=== PATIENT | female | born 1940 | race Caucasian/White ===

== ENCOUNTER 2017-07-08 03:05 | Emergency (ER) | payer MEDICARE ==
[2017-07-08 03:46] LABS: BILIRUBIN,URINE NEGATIVE (NEG); CLARITY,URINE CLEAR; COLOR,URINE YELLOW; GLUCOSE,URINE NEGATIVE (NEG); NITRITE,URINE NEGATIVE (NEG); PROTEIN,URINE NEGATIVE (NEG-TRACE); UROBILINOGEN,URINE 0.2 mg/dL (0.2 mg/dL)
[2017-07-08 03:55] LABS: BACTERIA,URINE 0 /HPF (0-FEW); RBC,URINE 0 /HPF (0-2); SQUAMOUS EPITHELIAL CELL,UR FEW /LPF; WBC,URINE OCC /HPF (0-4)
[2017-07-08 04:16] LABS: ADD MAN DIFF? NO
[2017-07-08 04:19] LABS: BASO # 0.1 x10^3/uL (0.0-0.2); BASO % 1 % (0-3); EOS # 0.2 x10^3/uL (0.0-0.7); EOS % 3 % (0-3); HEMOGLOBIN 10.3 g/dL (12.0-15.5); LYMPH # 1.7 x10^3/uL (1.0-4.8); LYMPH % 27 % (24-48); MEAN CORPUSCULAR HEMOGLOBIN 28 pg (25-35); MEAN CORPUSCULAR HGB CONC 33 g/dL (31-37); MEAN CORPUSCULAR VOLUME 83 fL (79-100); MONO # 0.5 x10^3/uL (0.0-1.1); MONO % 8 % (0-9); NEUT # 3.9 x10^3uL (1.8-7.7); NEUT % 61 % (31-73); PLATELET COUNT 241 x10^3/uL (140-400); RED BLOOD COUNT 3.74 x10^6/uL (3.50-5.40); RED CELL DISTRIBUTION WIDTH 15.2 % (11.5-14.5); WHITE BLOOD COUNT 6.3 x10^3/uL (4.0-11.0)
[2017-07-08 04:28] LABS: ANION GAP 10 (6-14); BLOOD UREA NITROGEN 27 mg/dL (7-20); CALCIUM 8.8 mg/dL (8.5-10.1); CARBON DIOXIDE 25 mmol/L (21-32); CHLORIDE 103 mmol/L (98-107); CREATININE 1.2 mg/dL (0.6-1.0); GFR 43.9; GLUCOSE 162 mg/dL (70-99); POTASSIUM 4.2 mmol/L (3.5-5.1); SODIUM 138 mmol/L (136-145)
== END 2017-07-08 05:00 | disposition home or self-care (01) ==
LOC: ER 03:05
DX: R41.0 Disorientation, unspecified (principal); T50.995A Adverse effect of other drugs, medicaments and biological substances, initial encounter; E11.9 Type 2 diabetes mellitus without complications; I10 Essential (primary) hypertension; K21.9 Gastro-esophageal reflux disease without esophagitis; G43.909 Migraine, unspecified, not intractable, without status migrainosus; Z88.1 Allergy status to other antibiotic agents; Z88.0 Allergy status to penicillin; Z88.8 Allergy status to other drugs, medicaments and biological substances; Z88.6 Allergy status to analgesic agent; Z90.710 Acquired absence of both cervix and uterus; Z90.49 Acquired absence of other specified parts of digestive tract; Z96.659 Presence of unspecified artificial knee joint; Y92.89 Other specified places as the place of occurrence of the external cause
CPT/HCPCS: 36415; 70450; 80048; 81001; 84484; 85025; 93005; 99285-25

== ENCOUNTER → 2018-10-14 | Outpatient (CLI) | payer MEDICARE ==
[2017-07-08 03:25] VITALS: BP 221/90
[~2018-10-14] MED LIST: ACET325T9 PO; ALEN70TA6 PO; ALLO300T PO; AMIT75TA PO; BARIUM SULFATE 60% 355 ML SUSP PO ONE; CALC-31 PO; FISH OIL OMEGA1 EACH PO; FURO20TA3 PO; GLIP5TAB22 PO; LABE100T5 PO; OLME1TAB25 PO; OMEP40CA5 PO; SIMV40TA3 PO; SITA1TAB11 PO; ZOLP10TA PO
--- NOTE | 2018-10-14 13:49 | RAD ---
Examination: SMALL BOWEL SERIES History: Anemia Comparison/Correlation: None Findings: Blood Bank Technician view demonstrates moderate quantity of retained stool in the colon. Degenerative changes of the lumbar spine are evident. Right upper quadrant surgical clips are present. Fluoroscopy was utilized for 0.3 minutes. 8 fluoroscopic images were acquired. Oral contrast was administered. On the initial image, incidental note is made of contrast within the distal esophagus. Contrast transit to small bowel is brisk. Contrast is noted throughout the jejunum by 20 minutes. Contrast is noted to reach the cecum by 40 minutes. No stricture is identified to involve small bowel. No focal, suspicious filling defect. Impression: No suspicious filling defects or strictures identified. Contrast within the distal esophagus is identified on initial image. This raises the possibility of gastroesophageal reflux. Electronically signed by: Vaughn Sin MD (10/14/2018 1:46 PM) [facility]
== END | disposition home or self-care (01) ==
LOC: RAD 08:40
PROVIDERS: ATTEND Internal Medicine Hematology & Oncology
DX: K56.41 Fecal impaction (principal); M47.816 Spondylosis without myelopathy or radiculopathy, lumbar region; Z88.0 Allergy status to penicillin; Z91.048 Other nonmedicinal substance allergy status; Z88.6 Allergy status to analgesic agent; Z88.8 Allergy status to other drugs, medicaments and biological substances
CPT/HCPCS: 74250

== ENCOUNTER → 2019-02-06 | Outpatient (CLI) | payer MEDICARE ==
[2017-07-08 03:25] VITALS: BP 221/90
[~2019-02-06] MED LIST changes: -BARIUM SULFATE 60% 355 ML SUSP PO ONE; +OMEP40CA45 PO; -OMEP40CA5 PO; +SIMV40TA18 PO; -SIMV40TA3 PO
--- NOTE | 2019-02-06 11:10 | CARD ---
MR#: [id number] Date of Study: 02/06/2019 Ordering Physician: RADHA LEE, Referring Physician: RADHA LEE, Tech: Mary Smith SANDRA APPROVED REPORT EXAM: Two-dimensional and M-mode echocardiogram with Doppler and color Doppler. Other Information Quality : Good INDICATION Aortic Valve Disease 2D DIMENSIONS RVDd3.0 (2.9-3.5cm)Left Atrium(2D)3.2 (1.6-4.0cm) IVSd0.9 (0.7-1.1cm)Aortic Root(2D)2.8 (2.0-3.7cm) LVDd4.9 (3.9-5.9cm)LVOT Diameter2.0 (1.8-2.4cm) PWd0.8 (0.7-1.1cm)LVDs3.9 (2.5-4.0cm) FS (%) 21.2 %SV49.4 ml LVEF(%)50.0 (>50%) M-Mode DIMENSIONS Aortic Cusp Exc1.60 (1.5-2.0cm) Aortic Valve AoV Peak Jayce.192.3cm/sAoV VTI43.9cm AO Peak GR.14.8mmHgLVOT Peak Jayce.112.1cm/s LVOT VTI 29.08cmAO Mean GR.8mmHg ELIZABETH (VMAX)1.53kd4EWE (VTI)2.14cm2 AI P 1/2 Mnur300ln Mitral Valve MV E Trdnvfub106.4cm/sMV DECEL WUEV388js MV A Awipcxgm164.2cm/sMV EFX68md E/A Ratio1.2MVA (PHT)4.43cm2 TDI E/Lateral E'35.6E/Medial E'45.7 Tricuspid Valve TR P. Tnqraath255dr/sRAP YOJFQXHX6kxOu TR Peak Gr.56gyZdTINZ93hnJi Pulmonary Vein S1 Nsxpgntg30.9cm/sD2 Nvzomjel38.0cm/s LEFT VENTRICLE The left ventricle is normal size. There is normal left ventricular wall thickness. Left ventricle sy stolic function is normal. The Ejection Fraction is 55%. There is normal LV segmental wall motion. RIGHT VENTRICLE The right ventricle is normal size. The right ventricular systolic function is normal. ATRIA The left atrium size is normal. The right atrium size is normal. The interatrial septum is intact wit h no evidence for an atrial septal defect or patent foramen ovale as noted on 2-D or Doppler imaging. AORTIC VALVE The aortic valve is calcified and displays a slightly decreased opening. Doppler and Color Flow revea led mild aortic regurgitation. Calculated aortic valve area is 2.4 cm2 with maximum pressure gradient of 14 mmHg and mean pressure gradient of 7 mmHg. MITRAL VALVE The mitral valve is calcified but opens well. Mitral annular calcification is mild. There is no evide nce of mitral valve prolapse. There is no mitral valve stenosis. Doppler and Color-flow revealed mild mitral regurgitation. TRICUSPID VALVE The tricuspid valve is normal in structure and function. Doppler and Color Flow revealed mild tricusp id regurgitation. There is moderate pulmonary hypertension. The PA pressure was estimated at 47 mmHg. There is no tricuspid valve stenosis. PULMONIC VALVE The pulmonic valve is not well visualized. Doppler and Color Flow revealed no pulmonic valvular regur gitation. There is no pulmonic valvular stenosis. GREAT VESSELS The aortic root is normal in size. The ascending aorta is normal in size. The IVC is normal in size a nd collapses >50% with inspiration. PERICARDIAL EFFUSION There is no evidence of significant pericardial effusion. Critical Notification Critical Value: No <Conclusion> Left ventricle systolic function is normal. The Ejection Fraction is 55%. There is normal LV segmental wall motion. Mild aortic regurgitation. Mild mitral regurgitation. Mild tricuspid regurgitation. The PA pressure was estimated at 47 mmHg. There is no evidence of significant pericardial effusion. Signed by : Levar Vaughn, Electronically Approved : 02/06/2019 11:10:05
== END | disposition home or self-care (01) ==
LOC: ECHO 08:44
PROVIDERS: ATTEND Internal Medicine Cardiovascular Disease
DX: I08.3 Combined rheumatic disorders of mitral, aortic and tricuspid valves (principal); I27.20 Pulmonary hypertension, unspecified
CPT/HCPCS: 93306

== ENCOUNTER 2019-02-13 20:54 | Emergency (ER) | payer MEDICARE ==
[~2019-02-13] VITALS: Ht 152.4 cm; Wt 92.5 kg
[2019-02-13 22:15] VITALS: BP 218/88
[2019-02-13] MEDS ORDERED: IPRATRPIUM/ALBUTEROL 0.5/2.5MG 3 ML NEBU. NEB ONE (22:45)
[2019-02-13] MEDS ORDERED: predniSONE 20 MG TABLET PO ONE (23:30)
[2019-02-13] MEDS ORDERED: predniSONE 20 MG TABLET ONE (23:32)
[2019-02-14 00:08] LABS: INFLUENZA A PATIENT NEGATIVE (NEGATIVE); INFLUENZA B PATIENT NEGATIVE (NEGATIVE)
--- NOTE | 2019-02-14 00:12 | PHYS DOC ---
Past Medical History Past Medical History: Arthritis, Diabetes-Type II, GERD, Hypertension, Mi graines, Other Additional Past Medical Histor: GOUT, REACTIVE AIRWAY DX (ZACARIAS WILD APRN) Past Surgical History: Cholecystectomy, Hysterectomy, Knee Replacement Additional Past Surgical Histo: PELVIC PROLAPSE,CATARACT,L. THYROID,BLADDER,OOPHRECTOMY,L.LUMPECTOMY (ZACARIAS WILD APRN) Alcohol Use: None Drug Use: None (ZACARIAS WILD APRN) Attending Signature I have participated in the care of this patient and I have reviewed and agree with all pertinent clinical information above including history, exam, and recommendations. (PERLA RODRIGUEZ MD) Adult General Chief Complaint Chief Complaint: COUGH HPI HPI Patient is a 78 year old female who presents with cough and a sore throat starting tonight. Reports she's had a cough a little shortness of breath over the last couple days, however slighted seemed to get a lot worse, when she felt like her throat has been closing up for a moment. She has not had it admitted for a well, but she does report she has reactive airway disease. Denies any recent fever, states she felt fine earlier today, when she went for her iron infusion, which she routinely gets due to her iron deficiency anemia. Denies any ill contacts. (ZACARIAS WILD APRN) Review of Systems Review of Systems Constitutional: Denies fever or chills [] Eyes: Denies change in visual acuity, redness, or eye pain [] HENT: Reports she has a sore throat, felt like her throat has been closing earlier, however tenderness improved[] Respiratory: Reports cough and shortness of breath[] Cardiovascular: No additional information not addressed in HPI [] GI: Denies abdominal pain, nausea, vomiting, bloody stools or diarrhea [] : Denies dysuria or hematuria [] Musculoskeletal: Denies back pain or joint pain [] Integument: Denies rash or skin lesions [] Neurologic: Denies headache, focal weakness or sensory changes [] Endocrine: Denies polyuria or polydipsia [] All other systems were reviewed and found to be within normal limits, except as documented in this note. (ZACARIAS WILD APRN) Current Medications Current Medications Current Medications Medications (Trade) Dose Ordered Sig/Mojgan Start Time Stop Time Status Last Admin Dose Admin Albuterol/ Ipratropium (Duoneb) 3 ml 1X ONCE 02/13/19 22:45 02/13/19 22:46 DC 02/13/19 22:53 3 ML Prednisone (Prednisone) 20 mg STK-MED ONCE 02/13/19 23:32 02/13/19 23:32 DC (PERLA RODRIGUEZ MD) Allergies Allergies Allergies Coded Allergies Type Severity Reaction Last Updated Verified adhesive Allergy Mild Rash 12/14/13 No NSAIDS (Non-Steroidal Anti-Inflamma Adverse Reaction Severe Bleeding 12/14/13 No Penicillins Adverse Reaction Severe Anaphylaxis 12/14/13 No aspirin Adverse Reaction Severe Bleeding 12/14/13 No cephalexin Adverse Reaction Severe Anaphylaxis 12/14/13 No lisinopril Adverse Reaction Intermediate Rash and cough 12/14/13 No (PERLA RODRIGUEZ MD) Physical Exam Physical Exam Constitutional: Well developed, well nourished, no acute distress, non-toxic appearance. [] HENT: Normocephalic, atraumatic, bilateral external ears normal, oropharynx mois t, no oral exudates, nose normal. [] Eyes: PERRLA, EOMI, conjunctiva normal, no discharge. [] Neck: Normal range of motion, no tenderness, supple, no stridor. [] Cardiovascular:Heart rate regular rhythm, no murmur [] Lungs & Thorax: Bilateral breath sounds clear to auscultation, initially noted wheezing prior to DuoNeb treatments on arrival [] Abdomen: Bowel sounds normal, soft, no tenderness, no masses, no pulsatile masses. [] Skin: Warm, dry, no erythema, no rash. [] Back: No tenderness, no CVA tenderness. [] Extremities: No tenderness, no cyanosis, no clubbing, ROM intact, no edema. [] Neurologic: Alert and oriented X 3, normal motor function, normal sensory function, no focal deficits noted. [] Psychologic: Affect normal, judgement normal, mood normal. [] (ZACARIAS WILD APRN) Current Patient Data Vital Signs Vital Signs Date Time Temp Pulse Resp B/P (MAP) Pulse Ox O2 Delivery O2 Flow Rate FiO2 02/13/19 22:56 99 Room Air 02/13/19 22:15 97.9 102 22 218/88 (131) 97.9 (PERLA RODRIGUEZ MD) Lab Values Laboratory Tests Test 02/13/19 22:30 Influenza Type A Antigen Negative (NEGATIVE) Influenza Type B Antigen Negative (NEGATIVE) (PERLA RODRIGUEZ MD) EKG EKG [] (ZACARIAS WILD APRN) Radiology/Procedures Radiology/Procedures No acute findings per Dr Rodriguez @ 0043[] (ZACARIAS WILD APRN) Course & Med Decision Making Course & Med Decision Making Pertinent Labs and Imaging studies reviewed. (See chart for details) [] (ZACARIAS WILD APRN) Dragon Disclaimer Dragon Disclaimer This electronic medical record was generated, in whole or in part, using a voice recognition dictation system. (ZACARIAS WILD APRN) Departure Departure Impression: Primary Impression: Bronchospasm, acute Disposition: HOME, SELF-CARE Condition: GOOD Referrals: YONNY CHÁVEZ MD (PCP) Patient Instructions: Bronchospasm, Adult Additional Instructions: As we discussed, take the steroids as prescribed. Use your nebulizer at home as needed for your breathing problems. If you continued to feel the same way after the next 2 days, follow up with her primary care provider Scripts Prednisone (PREDNISONE) 20 Mg Tablet 1 TAB PO BID, #10 TAB Prov: ZACARIAS WILD APRN 02/14/19 Ipratropium/Albuterol Sulfate (DUONEB 0.5-3(2.5) MG/3 ML) 3 Ml Ampul.neb 3 ML NEB QID for 5 Days, #20 EACH Prov: ZACARIAS WILD APRN 02/14/19 ZACARIAS WILD APRN Feb 14, 2019 00:12 PERLA RODRIGUEZ MD Feb 14, 2019 02:40
[2019-02-14] MEDS ORDERED: IPRA3AMP29 NEB (00:54)
[2019-02-14] MEDS ORDERED: PRED20TA PO (00:54)
--- NOTE | 2019-02-14 04:17 | RAD ---
Exam: Chest 2 views INDICATION: Shortness of air TECHNIQUE: Frontal and lateral views the chest Comparisons: None FINDINGS: The cardiomediastinal silhouette and pulmonary vessels are within normal limits. The lung and pleural spaces are clear. IMPRESSION: No acute cardiopulmonary process. Electronically signed by: Geovanna Smith MD (02/14/2019 4:14 AM) [facility]
== END 2019-02-14 01:18 | disposition home or self-care (01) ==
LOC: ER 20:54
DX: J98.01 Acute bronchospasm (principal); E11.9 Type 2 diabetes mellitus without complications; K21.9 Gastro-esophageal reflux disease without esophagitis; I10 Essential (primary) hypertension; G43.909 Migraine, unspecified, not intractable, without status migrainosus; M10.9 Gout, unspecified; Z88.0 Allergy status to penicillin; Z88.1 Allergy status to other antibiotic agents; Z88.6 Allergy status to analgesic agent; Z88.8 Allergy status to other drugs, medicaments and biological substances
CPT/HCPCS: 71046; 87070; 87804; 87880; 94640; 94760; 99285; J7512; J7620

== ENCOUNTER → 2020-08-16 | Outpatient (CLI) | payer MEDICARE ==
[~2020-08-16] MED LIST changes: -ALEN70TA6 PO; +ALEN70TA71 PO; +IPRA3AMP29 NEB; -OMEP40CA45 PO; +OMEP40CA7 PO; +PRED20TA PO
== END ==
LOC: LAB 13:53
PROVIDERS: ATTEND Internal Medicine Gastroenterology
DX: R19.7 Diarrhea, unspecified (principal)
CPT/HCPCS: 87177; 87209; 87329; 87493; 87505

== ENCOUNTER → 2020-09-08 | Day surgery (SDC) | payer MEDICARE ==
[~2020-09-08] VITALS: Ht 152.4 cm; Wt 88.0 kg
[~2020-09-08] MED LIST changes: +AMLO-186 PO; +HYDROmorphone 2 MG/ML VIAL IVP PRN; +IV RINGERS,LACTATED 1000ML 1,000 ML IV SCH; +LABE300T2 PO; +LIDOCAINE 2% PF 5 ML VIAL. ONE; +MORPHINE SULFATE 2 MG/ML INJ. IVP PRN; +PROCHLORPERAZINE 10 MG/2 ML VIAL. IVP PRN; +PROPOFOL 10 MG/ML (20ML) VIAL. IV ONE; +SODIUM PHOSPHATES 19/7GM 133 ML ENEMA. PR ONE; +TRAZ-123 PO; +fentaNYL PF VIAL 100 MCG/2 ML VIAL IVP PRN
[2020-09-08 10:43] VITALS: BP 178/67
[2020-09-08 12:12] VITALS: BP 166/72
--- NOTE | 2020-09-12 18:33 | PATHOLOGY ---
[facility] Accession Number: [id number] . 01 Material submitted: . PART A: small bowel - SMALL BOWEL BX PART B: ANTRUM - ANTRUM AND BODY BX. Modifiers: body PART C: esophagus - DISTAL ESOPHAGUS BX. Modifiers: distal PART D: esophagus - MID ESOPHAGUS BX. Modifiers: mid PART E: colon - RIGHT COLON BX. Modifiers: right PART F: colon - LEFT COLON BX. Modifiers: left . 01 Clinical history: . DYSPHAGIA/HX POLYPS EGD/COLONOSCOPY . 02 Diagnosis: A. Small bowel biopsy: - No significant pathologic abnormalities. . B. Gastric biopsies, gastric body and gastric antrum: - Chronic gastritis, mild. . C. 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 . D. Esophageal biopsy, middle esophagus: - Segment of squamous esophageal mucosa showing no significant pathologic abnormalities. . E. Colonic mucosa, right colon biopsies: - No significant pathologic abnormalities. . F. Colonic mucosa, left colon biopsies: - No significant pathologic abnormalities. (JPM:jason; 09/12/2020) . . . [facility] 09/12/2020 1733 Local . 02 Comment: Sections of the small bowel biopsy reveal segments of small intestine mucosa. Where best oriented, the mucosal villi show no sprue-like changes or significant inflammatory changes. There is also a segment of gastric antral mucosa showing mild chronic inflammation. . Sections of the gastric biopsy reveal segments of gastric antral and gastric body mucosa showing congestion and mild chronic inflammation. A properly controlled immunoperoxidase stain for Helicobacter is negative for Helicobacter organisms. . Sections of the distal esophageal biopsy reveal segments of esophagogastric and gastric mucosa showing mild to focally moderate chronic inflammation. 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 There is no dysplasia or evidence of malignancy. . Sections of the middle esophageal biopsy reveal a segment of squamous esophageal mucosa showing no significant pathologic abnormalities. . Sections of the right and left colon biopsies appear similar and reveal segments of colonic mucosa. There is no evidence of a chronic destructive colitis, lymphocytic colitis, or collagenous colitis. (JPM:jason; 09/12/2020) . Special stain performed: Immunoperoxidase stain for Helicobacter on B1 . 02 Electronically signed: . Chris Encarnacion MD, Pathologist NPI- [id number] . 01 Gross description: . A. The specimen is submitted in formalin, labeled "Char Conveyor Tender, Tressa, small bowel biopsy". Received are multiple segments of pale ford tissue ranging in size from 0.2 to 0.6 cm in maximum dimensions. The specimen is submitted in cassette A1. . B. The specimen is submitted in formalin, labeled "Char Conveyor Tender, Tressa, antrum and body biopsy". Received are 3 segments of pale ford tissue ranging in size from 0.3 to 0.6 cm in maximum dimensions. The specimen is submitted in cassette B1. . C. The specimen is submitted in formalin, labeled "Char Conveyor Tender, Tressa, distal esophagus biopsy". Received are 3 segments of pale ford tissue ranging in size from 0.2 to 0.6 cm in maximum dimensions. The specimen is submitted in cassette C1. . D. The specimen is received in formalin, labeled "Char Conveyor Tender, Tressa, mid esophagus biopsy". Received is a single segment of pale ford tissue measuring 0.6 cm in maximum dimensions. The specimen is submitted entirely in cassette D1. . E. The specimen is submitted in formalin, labeled "Char Conveyor Tender, Tressa, right colon biopsy". Received are 4 segments of pale ford tissue ranging in size from 0.3 to 0.4 cm in maximum dimensions. The specimen is submitted in cassette E1. . F. The specimen is submitted in formalin, labeled "Char Conveyor Tender, Tressa, left colon biopsy". Received are 2 segments of pale ford tissue ranging in size from 0.4 to 1.1 cm in maximum dimensions. The specimen is submitted in cassette F1. ([facility]; 09/09/2020) NRI/NRI 09/09/2020 1124 Local . 02 Pathologist provided ICD-10: K29.50, K20.80, R13.10, Z86.010 . 02 CPT . 597568, 206615, 283255, 805589, 201123, 611503, [id number] Specimen Comment: A courtesy copy of this report has been sent to [phone] Specimen Comment: Report sent to Performed at: 01 [facility] [address] [place] [address] [address], [place] [id number] MD Rishi Self MD Phone: [phone] Performed at: 02 [facility] [address] [place], [place] [id number] MD Chris Encarnacion MD Phone: [phone]
== END | disposition home or self-care (01) ==
LOC: SURG 09:56
PROVIDERS: ATTEND Internal Medicine Gastroenterology
DX: R19.4 Change in bowel habit (principal); K64.0 First degree hemorrhoids; R13.10 Dysphagia, unspecified; K29.50 Unspecified chronic gastritis without bleeding; K31.89 Other diseases of stomach and duodenum; K63.89 Other specified diseases of intestine; K21.00 Gastro-esophageal reflux disease with esophagitis, without bleeding; Z86.010 Personal history of colon polyps; I25.10 Atherosclerotic heart disease of native coronary artery without angina pectoris; I10 Essential (primary) hypertension; E78.00 Pure hypercholesterolemia, unspecified; G47.30 Sleep apnea, unspecified; M19.90 Unspecified osteoarthritis, unspecified site; E11.9 Type 2 diabetes mellitus without complications; Z90.710 Acquired absence of both cervix and uterus; Z98.890 Other specified postprocedural states; Z79.82 Long term (current) use of aspirin; Z79.4 Long term (current) use of insulin; Z79.899 Other long term (current) drug therapy; Z88.0 Allergy status to penicillin; Z88.1 Allergy status to other antibiotic agents; Z88.8 Allergy status to other drugs, medicaments and biological substances
CPT/HCPCS: 43239; 43450; 45380; J2704

== ENCOUNTER → 2021-03-20 | Outpatient (CLI) | payer MEDICARE ==
[2020-09-08 12:12] VITALS: BP 166/72
[~2021-03-20] MED LIST changes: -HYDROmorphone 2 MG/ML VIAL IVP PRN; +IOHEXOL 300 MG/ML 50 ML VIAL. INT ART ONE; -IV RINGERS,LACTATED 1000ML 1,000 ML IV SCH; +LIDOCAINE 1% Multi-Dose 20 ML VIAL. ID ONE; -LIDOCAINE 2% PF 5 ML VIAL. ONE; -MORPHINE SULFATE 2 MG/ML INJ. IVP PRN; -PROCHLORPERAZINE 10 MG/2 ML VIAL. IVP PRN; -PROPOFOL 10 MG/ML (20ML) VIAL. IV ONE; -SODIUM PHOSPHATES 19/7GM 133 ML ENEMA. PR ONE; -fentaNYL PF VIAL 100 MCG/2 ML VIAL IVP PRN
--- NOTE | 2021-03-20 14:35 | KCIC ---
Examination: Left CT knee arthrogram HISTORY: Chronic left knee pain COMPARISON: None available TECHNIQUE: Axial CT images of the left knee was performed after arthrogram injection. Coronal and sag ittal reformats are performed Exposure: One or more of the following individualized dose reduction techniques were utilized for thi s examination: 1. Automated exposure control 2. Adjustment of the mA and/or kV according to patient size 3. Use of iterative reconstruction technique Findings/ impression: Total knee replacement in normal alignment. Significant metal artifact from arthroplasty limits evalu ation. Contrast is identified in the knee joint particularly in the supraclavicular region. There are small foci of air identified in the suprapatellar bursa region probably secondary to injection. The extensor mechanism appears intact. Unfortunately due to arthroplasty artifact evaluation of the inter nal structures of the knee is extremely limited. Electronically signed by: Nixon Pierre MD (03/20/2021 2:33 PM) [id number]
--- NOTE | 2021-03-20 16:25 | KCIC ---
Examination: Left knee Arthrogram for CT Indications: Chronic left knee pain. Procedure: Risks, benefits and complications including bleeding, infection, blood vessel damage or j oint infection were discussed with the patient. Questions were answered and consent form signed. The patient was placed supine on the fluoroscopy table. Bony landmarks were used to plan for fluoros copic injection. The patient was carefully prepped and draped in a sterile fashion. Using fluorosco pic guidance, local anesthetic and a 22 gauge needle the joint space was entered laterally behind the patella. Intra-articular location was confirmed with injection 30 cc of identified contrast gadolini um agent to distend the knee joint. The procedure was well tolerated and the patient was sent CT. Total fluoroscopic time 33 seconds. Total fluoroscopic images 1. Impression: Status post fluoroscopic guided arthrogram in preparation for CT. Electronically signed by: Nixon Pierre MD (03/20/2021 4:23 PM) [id number]
== END | disposition home or self-care (01) ==
LOC: KCIC 12:54
PROVIDERS: ATTEND Orthopaedic Surgery Sports Medicine
DX: M25.562 Pain in left knee (principal); I10 Essential (primary) hypertension; E78.00 Pure hypercholesterolemia, unspecified; I25.10 Atherosclerotic heart disease of native coronary artery without angina pectoris; G47.30 Sleep apnea, unspecified; M19.90 Unspecified osteoarthritis, unspecified site; K21.9 Gastro-esophageal reflux disease without esophagitis; E11.9 Type 2 diabetes mellitus without complications; Z90.710 Acquired absence of both cervix and uterus; Z98.890 Other specified postprocedural states; Z79.899 Other long term (current) drug therapy; Z87.440 Personal history of urinary (tract) infections; Z87.891 Personal history of nicotine dependence; Z88.0 Allergy status to penicillin; Z88.1 Allergy status to other antibiotic agents; Z88.8 Allergy status to other drugs, medicaments and biological substances
CPT/HCPCS: 27369; 73701; 77002; J3490; Q9967

== ENCOUNTER → 2021-04-04 | Outpatient (CLI) | payer MEDICARE ==
[2020-09-08 12:12] VITALS: BP 166/72
[~2021-04-04] MED LIST changes: -IOHEXOL 300 MG/ML 50 ML VIAL. INT ART ONE; -LIDOCAINE 1% Multi-Dose 20 ML VIAL. ID ONE
--- NOTE | 2021-04-04 15:20 | KCIC ---
EXAM: MRI left shoulder DATE: 04/04/2021 12:45 PM COMPARISON: None INDICATION: Reason: LEFT SHOULDER PAIN / Spl. Instructions: / History: Pt states chronic left sh kaur n and LROM from known arthritis. TECHNIQUE: Multiplanar, multisequence MRI of the left shoulder was performed without contrast. FINDINGS: AC joint degenerative changes are seen with small AC joint effusion. Mild AC joint degenerative lehman e. Type II acromion. No os acromiale. Small left shoulder joint effusion. Small subacromial-subdeltoid bursal fluid from bursitis. There is a full-thickness tear of the supraspinatus tendon measuring 1.7 cm in AP dimension. Partial- thickness articular sided tear of the anterior infraspinatus tendon is also seen less than 50 percent tendon thickness. There is moderate fatty atrophy of the supraspinatus muscle belly. Left shoulder joint osteoarthritis with regions of chondral effacement and associated osteophytes. In tra-articular long head biceps tendon is intact. Diffuse glenoid labral thinning and deformity likely degeneration/maceration. No acute fracture or osteonecrosis. IMPRESSION: 1. Full-thickness tear of the supraspinatus tendon measuring 1.7 cm in AP dimension. 2. Small subacromial-subdeltoid bursal fluid from bursitis. Small left shoulder joint effusion. 3. Advanced left glenohumeral joint osteoarthritis Electronically signed by: Migue Corrales MD (04/04/2021 3:17 PM) [id number]
== END ==
LOC: KCIC MRI 12:27
PROVIDERS: ATTEND Orthopaedic Surgery Sports Medicine
DX: M75.122 Complete rotator cuff tear or rupture of left shoulder, not specified as traumatic (principal); M19.012 Primary osteoarthritis, left shoulder; M25.412 Effusion, left shoulder; M75.52 Bursitis of left shoulder; M25.812 Other specified joint disorders, left shoulder
CPT/HCPCS: 73221

== ENCOUNTER → 2021-06-30 | Outpatient (CLI) | payer MEDICARE ==
[2020-09-08 12:12] VITALS: BP 166/72
[~2021-06-30] MED LIST changes: +ATOR40TA59 PO; +IPRA15SP NS; +LACT1CAP37 PO; +PSYL0.5215 PO; +VITA1TAB19 PO
[2021-06-30 13:00] LABS: BASO % 1 % (0-3); EOS # 0.5 x10^3/uL (0.0-0.7); EOS % 8 % (0-3); HEMATOCRIT 30.9 % (36.0-47.0); HEMOGLOBIN 10.1 g/dL (12.0-15.5); LYMPH # 1.1 x10^3/uL (1.0-4.8); LYMPH % 18 % (24-48); MEAN CORPUSCULAR HEMOGLOBIN 29 pg (25-35); MEAN CORPUSCULAR HGB CONC 33 g/dL (31-37); MEAN CORPUSCULAR VOLUME 88 fL (79-100); MONO # 0.4 x10^3/uL (0.0-1.1); MONO % 7 % (0-9); NEUT # 4.1 x10^3/uL (1.8-7.7); NEUT % 67 % (31-73); PLATELET COUNT 243 x10^3/uL (140-400); RED BLOOD COUNT 3.51 x10^6/uL (3.50-5.40); RED CELL DISTRIBUTION WIDTH 16.5 % (11.5-14.5); WHITE BLOOD COUNT 6.2 x10^3/uL (4.0-11.0)
--- NOTE | 2021-06-30 13:00 | EKG ---
[facility] [address] [place] [address] Test Date: 2021-06-30 Test Time: 12:53:09 Pat Name: ANIKA ELIAS Department: Room: Gender: F Slip Presser: : 1940 Requested By: LALO MORSE Order Number: [id number] Reading MD: Levar Vaughn Measurements Intervals [place] Rate: 75 P: 54 NM: 166 QRS: -26 QRSD: 98 T: 40 QT: 440 QTc: 494 Interpretive Statements SINUS RHYTHM LEFTWARD AXIS PROLONGED QT RIGHT BUNDLE BRANCH BLOCK Electronically Signed On 07-03-2021 9:57:35 CDT by Levar Vaughn
[2021-06-30 13:14] LABS: ALBUMIN 3.4 g/dL (3.4-5.0); CALCIUM 9.4 mg/dL (8.5-10.1); CREATININE 1.1 mg/dL (0.6-1.0); POTASSIUM 4.5 mmol/L (3.5-5.1)
[2021-06-30 13:15] LABS: PROTHROMBIN TIME PATIENT 12.6 SEC (11.7-14.0)
[2021-06-30 14:25] LABS: HYALINE CASTS, URINE MODERATE /HPF
[2021-06-30 14:26] LABS: BACTERIA,URINE 0 /HPF (0-FEW); RBC,URINE 0 /HPF (0-2); WBC,URINE 0 /HPF (0-4)
--- NOTE | 2021-06-30 14:36 | RAD ---
EXAM: Chest, 2 views. HISTORY: Shoulder pain. Preoperative evaluation. COMPARISON: 02/13/2019 FINDINGS: 2 views of the chest are obtained. There is no infiltrate, pleural effusion or pneumothorax . There are chronic appearing interstitial changes. There are calcified granulomas. There is a stable cardiac silhouette. There is stable eventration of the right hemidiaphragm. IMPRESSION: Chronic appearing interstitial changes. No acute pulmonary finding. Electronically signed by: Whit Mitchell MD (06/30/2021 2:34 PM) [id number]
[2021-07-01 03:10] LABS: HEMOGLOBIN A1C 5.6 % (4.8-5.6)
== END ==
LOC: SURGPAT 12:23
PROVIDERS: ATTEND Orthopaedic Surgery Sports Medicine
DX: Z01.818 Encounter for other preprocedural examination (principal); I45.10 Unspecified right bundle-branch block; J84.10 Pulmonary fibrosis, unspecified; M19.012 Primary osteoarthritis, left shoulder
CPT/HCPCS: 36415; 71046; 80048; 81001; 82040; 82306; 83036; 85025; 85610; 85651; 85730; 87641; 93005

== ENCOUNTER → 2021-07-06 | Outpatient (CLI) | payer MEDICARE ==
[2021-06-30 13:17] VITALS: BP 179/72
[2021-07-06 14:43] LABS: FREE T4 1.01 ng/dL (0.76-1.46); THYROID STIM HORMONE (TSH) 1.266 uIU/mL (0.358-3.74)
[2021-07-06 23:14] LABS: RHEUMATOID FACTOR 10.7 IU/mL (<14.0)
[2021-07-07 13:19] LABS: IMMUNOGLOBULIN A 123 mg/dL (64-422); IMMUNOGLOBULIN G 427 mg/dL (586-1602); IMMUNOGLOBULIN M 53 mg/dL (26-217)
[2021-07-07 14:30] LABS: ALBUM 3.6 g/dL (2.9-4.4); ALPHA 1 0.2 g/dL (0.0-0.4); ALPHA 2 1.1 g/dL (0.4-1.0); BETA 0.9 g/dL (0.7-1.3); GAMMA 0.4 g/dL (0.4-1.8); PROTEIN TOTAL 6.2 g/dL (6.0-8.5); SPEP AG RATIO 1.4 (0.7-1.7)
[2021-07-07 17:10] LABS: KAPPA FREE 27.6 mg/L (3.3-19.4); KAPPA LAMBDA RATIO 1.19 (0.26-1.65); LAMBDA FREE 23.1 mg/L (5.7-26.3)
== END ==
LOC: ONCLAB 12:53 → MERGE 15:04
PROVIDERS: ATTEND Internal Medicine Hematology & Oncology
DX: D50.0 Iron deficiency anemia secondary to blood loss (chronic) (principal); R53.83 Other fatigue
CPT/HCPCS: 36415; 82728; 82784; 83520; 83540; 83550; 83921; 84165; 84439; 84443; 86038; 86334; 86431